=== PATIENT | female | born 1945 | race Caucasian/White ===

== ENCOUNTER 2021-02-08 11:11 | Emergency (ER) | payer MEDICARE ==
[2021-02-08] MEDS ORDERED: Acetaminophen 325 MG Tab PO PRN (11:52)
--- NOTE | 2021-02-08 11:58 | EDM.PDOC ---
ED HPI GENERAL MEDICAL PROBLEM - General Chief Complaint: Respiratory Problem Stated Complaint: COVID Time Seen by Provider: 02/08/21 11:38 Source of Information: Reports: Patient, RN Notes Reviewed History Limitations: Reports: No Limitations - History of Present Illness INITIAL COMMENTS - FREE TEXT/NARRATIVE: 75-year-old female presents emergency department day complaint of shortness of breath, she was recently diagnosed with COVID-19 on 06 February started having symptoms about a day or so prior. She does have a cough without any significant sputum production has not had any fevers at home did receive Pfizer vaccine earlier this year 2 full doses. Believes she was exposed when she went to a in [place] - Related Data Allergies Allergy/AdvReac Type Severity Reaction Status Date / Time No Known Allergies Allergy Verified 02/08/21 11:24 Home Meds: Home Meds Levothyroxine [Sythroid] 88 mcg PO BID 12/02/13 [History] atorvaSTATin [Lipitor] 10 mg PO BEDTIME 12/02/13 [History] Multivitamin [Multivitamins] 1 each PO DAILY 04/06/18 [History] Diclofenac Sodium [Voltaren] 1 tab PO DAILY 02/08/21 [History] Past Medical History HEENT History: Reports: Impaired Vision Cardiovascular History: Reports: Other (See Below) Other Cardiovascular History: Faints consistently when ill with flu including most typically when supine Musculoskeletal History: Reports: Arthritis, Osteoarthritis, Other (See Below) Other Musculoskeletal History: Arthritis L thumb, R knee OA Endocrine/Metabolic History: Reports: Hypothyroidism - Past Surgical History Musculoskeletal Surgical History: Reports: Arthroscopic Procedure, Shoulder Surgery, Other (See Below) Other Musculoskeletal Surgeries/Procedures:: L shoulder arthroscopy 2011 Dr. Harp Social & Family History - Tobacco Use Tobacco Use Status *Q: Never Tobacco User ED ROS GENERAL - Review of Systems Review Of Systems: See Below Constitutional: Reports: Weakness HEENT: Reports: No Symptoms Respiratory: Reports: Shortness of Breath, Cough. Denies: Sputum Cardiovascular: Reports: No Symptoms GI/Abdominal: Reports: No Symptoms ED EXAM, GENERAL - Physical Exam Exam: See Below Exam Limited By: No Limitations General Appearance: Alert, WD/WN, No Apparent Distress Respiratory/Chest: No Respiratory Distress, Lungs Clear, Normal Breath Sounds, No Accessory Muscle Use, Chest Non-Tender Cardiovascular: Regular Rate, Rhythm, No Murmur GI/Abdominal: Soft, Non-Tender Course - Vital Signs Last Recorded V/S: Last Vital Signs Temp 97.5 F 02/08/21 11:35 Pulse 62 02/08/21 11:35 Resp 14 02/08/21 11:35 BP 126/48 L 02/08/21 11:35 Pulse Ox 99 02/08/21 11:35 - Orders/Labs/Meds Orders: Active Orders 24 hr Category Date Time Status Nurse Communication: Isolation [RC] ASDIRECTED Care 02/08/21 11:53 Active Chest 1V Frontal [CR] Stat Exams 02/08/21 11:53 Taken Acetaminophen [TylenoL] Med 02/08/21 11:52 Active 650 mg PO Q4H PRN Isolation [COMM] Stat Oth 02/08/21 11:52 Ordered Medication Orders Acetaminophen (Acetaminophen 325 Mg Tab) 650 mg PO Q4H PRN PRN Reason: Fever Greater Than 101 Last Admin: 02/08/21 12:26 Dose: 650 mg Documented by: CHIKIS Labs: Laboratory Tests 02/08/21 02/08/21 02/08/21 Range/Units 12:10 12:10 12:10 WBC 3.5 L (4.5-11.0) K/uL RBC 4.65 (3.30-5.50) M/uL Hgb 13.4 (12.0-15.0) g/dL Hct 40.6 (36.0-48.0) % MCV 87 (80-98) fL MCH 29 (27-31) pg MCHC 33 (32-36) % Plt Count 185 (150-400) K/uL Neut % (Auto) 47.2 (36-66) % Lymph % (Auto) 36.8 (24-44) % [place] % (Auto) 14.2 H (2-6) % Eos % (Auto) 0.9 L (2-4) % Baso % (Auto) 0.9 (0-1) % Sodium 136 L (140-148) mmol/L Potassium 3.6 (3.6-5.2) mmol/L Chloride 100 (100-108) mmol/L Carbon Dioxide 27 (21-32) mmol/L Anion Gap 12.6 (5.0-14.0) mmol/L BUN 9 (7-18) mg/dL Creatinine 0.9 (0.6-1.0) mg/dL Est Cr Clr Drug Dosing 47.10 mL/min Estimated GFR (MDRD) > 60 (>60) Glucose 165 H (74-106) mg/dL Lactic Acid 2.8 H (0.4-2.0) mmol/L Calcium 8.8 (8.5-10.1) mg/dL Troponin I (0.000-0.056) ng/mL 02/08/21 Range/Units 12:10 WBC (4.5-11.0) K/uL RBC (3.30-5.50) M/uL Hgb (12.0-15.0) g/dL Hct (36.0-48.0) % MCV (80-98) fL MCH (27-31) pg MCHC (32-36) % Plt Count (150-400) K/uL Neut % (Auto) (36-66) % Lymph % (Auto) (24-44) % [place] % (Auto) (2-6) % Eos % (Auto) (2-4) % Baso % (Auto) (0-1) % Sodium (140-148) mmol/L Potassium (3.6-5.2) mmol/L Chloride (100-108) mmol/L Carbon Dioxide (21-32) mmol/L Anion Gap (5.0-14.0) mmol/L BUN (7-18) mg/dL Creatinine (0.6-1.0) mg/dL Est Cr Clr Drug Dosing mL/min Estimated GFR (MDRD) (>60) Glucose (74-106) mg/dL Lactic Acid (0.4-2.0) mmol/L Calcium (8.5-10.1) mg/dL Troponin I < 0.017 (0.000-0.056) ng/mL Meds: Medications Generic Name Dose Route Start Last Admin Trade Name Freq PRN Reason Stop Dose Admin Acetaminophen 650 mg 02/08/21 11:52 02/08/21 12:26 Acetaminophen 325 Mg Tab PO 650 mg Q4H PRN Administration Fever Greater Than 101 Departure - Departure Time of Disposition: 13:31 Disposition: Home, Self-Care 01 Condition: Fair Clinical Impression: COVID-19 - Discharge Information Referrals: PCP,None [Primary Care Provider] - Forms: ED Department Discharge Additional Instructions: Outpatient treatment center will call you for an appointment time for your monoclonal antibody infusion, call return to the emergency department worsening symptoms Sepsis Event Note (ED) - Evaluation Sepsis Screening Result: No Definite Risk - Focused Exam Vital Signs: Vital Signs Temp Pulse Resp BP Pulse Ox 02/08/21 11:35 97.5 F 62 14 126/48 L 99 - My Orders Last 24 Hours: My Active Orders 02/08/21 11:52 Acetaminophen [TylenoL] 650 mg PO Q4H PRN Isolation [COMM] Stat 02/08/21 11:53 Nurse Communication: Isolation [RC] ASDIRECTED Chest 1V Frontal [CR] Stat - Assessment/Plan Last 24 Hours: My Active Orders 02/08/21 11:52 Acetaminophen [TylenoL] 650 mg PO Q4H PRN Isolation [COMM] Stat 02/08/21 11:53 Nurse Communication: Isolation [RC] ASDIRECTED Chest 1V Frontal [CR] Stat Plan: Assessment Acuity = acute Site and laterality = viral syndrome Etiology = COVID-19 Manifestations = dyspnea Location of injury = Home Lab values = CBC CMP unremarkable chest x-ray I did review films myself I cannot appreciate any acute process, the official read from radiology is pending Plan She is only couple days out from diagnosis and symptoms she has been vaccinated I think she is a good candidate because of her age for monoclonal antibody therapy treatment which she has been set up for paperwork filled out they will call her this week for treatment This note was dictated using [employer] voice recognition software please call with any questions on syntax or grammar.
--- NOTE | 2021-02-09 09:41 | CR ---
CHEST: Portable 02/08/2021 at 12:23 PM CLINICAL HISTORY:Covid pos COMPARISON:None FINDINGS: The heart size, pulmonary vascularity and hilar structures are normal. No infiltrate effusion or pneumothorax is seen. IMPRESSION: No acute cardiopulmonary process .
== END 2021-02-08 13:53 | disposition home or self-care (01) ==
LOC: JP.ED 11:11
DX: U07.1 COVID-19 (principal); E03.9 Hypothyroidism, unspecified; Z79.899 Other long term (current) drug therapy
CPT/HCPCS: 36415; 71045; 80048; 83605; 84484; 85025; 99285; A9270

== ENCOUNTER 2021-08-06 06:24 | Day surgery (SDC) | payer MEDICARE ==
[2021-08-06] MEDS ORDERED: Sodium Chloride 0.9% 10 ML Syringe FLUSH PRN (06:45)
[2021-08-06] MEDS ORDERED: Midazolam 1 MG/ML 2 ML SDV ONE (07:28)
== END 2021-08-06 08:21 | disposition home or self-care (01) ==
LOC: JP.SDS 06:24
PROVIDERS: ATTEND Ophthalmology
DX: H25.811 Combined forms of age-related cataract, right eye (principal); E78.5 Hyperlipidemia, unspecified
CPT/HCPCS: 66984; J2250

== ENCOUNTER 2023-03-15 12:11 | Emergency (ER) | payer MEDICARE ==
[2023-03-15 12:39] LABS: BASOPHILS ABSOLUTE AUTO 0.04 K/uL (0.00-0.10); BASOPHILS PERCENT AUTO 0.6 % (0.1-1.3); EOSINOPHILS ABSOLUTE AUTO 0.04 K/uL (0.00-0.40); EOSINOPHILS PERCENT AUTO 0.6 % (0.0-5.4); HEMATOCRIT 39.8 % (34.3-46.0); HEMOGLOBIN 13.5 g/dL (11.2-15.5); IMMATURE GRAN PERCENT AUTO 0.1 % (0.0-0.7); LYMPHOCYTES ABSOLUTE AUTO 1.71 K/uL (0.8-3.3); LYMPHOCYTES PERCENT AUTO 25.3 % (11.4-47.7); MEAN CORPUSCULAR HEMOGLOBIN 29.7 pg (31.6-35.5); MEAN CORPUSCULAR HGB CONC 33.9 g/dL (31.6-35.5); MEAN CORPUSCULAR VOLUME 87.7 fL (81.4-99.0); MONOCYTES PERCENT AUTO 8.9 % (3.3-12.6); NEUTROPHILS ABSOLUTE AUTO 4.37 K/uL (1.0-7.6); NEUTROPHILS PERCENT AUTO 64.5 % (40.0-78.1); PLATELET COUNT,PLT 194 K/uL (130-375); RED BLOOD CELL COUNT 4.54 M/uL (3.77-5.24); WHITE BLOOD CELL COUNT,WBC 6.8 K/uL (3.2-11.0)
[2023-03-15 12:41] LABS: IMMATURE GRAN ABSOLUTE AUTO 0.01 K/uL (0.00-0.23)
[2023-03-15 13:06] LABS: CALCIUM 8.8 mg/dL (8.5-10.1); CREATININE 0.8 mg/dL (0.6-1.0); EST CRCL DRUG DOSING (CG) 50.47 mL/min; POTASSIUM,K 3.7 mmol/L (3.6-5.2)
[2023-03-15 13:08] LABS: ANION GAP 14.7 mmol/L (5.0-14.0)
== END 2023-03-15 14:36 | disposition home or self-care (01) ==
LOC: JP.ED 12:11
DX: R55 Syncope and collapse (principal); E03.9 Hypothyroidism, unspecified; Z79.899 Other long term (current) drug therapy
CPT/HCPCS: 36415; 80048; 83605; 84484; 85025; 93005; 99284